=== PATIENT | female | born 2000 | race Two or more races ===

== ENCOUNTER 2022-11-08 13:29 | Outpatient (REF) | payer MEDICAID, SELFPAY ==
--- NOTE | ~2022-11-08 | XR_ITS ---
EXAMINATION: XR WRIST LT W SCAPHOID CLINICAL INFORMATION: Sprain of left wrist after injury. COMPARISON: None available. TECHNIQUE: Left wrist 4 views including scaphoid. FINDINGS: The alignment is normal. No visible fracture, dislocation or acute osseous abnormality is seen. Suggestion of mild soft tissue swelling dorsally. XR/XR wrist LT w scaphoid IMPRESSION: Mild soft tissue swelling. No visible fracture, dislocation or acute osseous abnormalities seen. Follow up radiograph can be obtained if the patient has persistent symptoms.
== END 2022-11-08 13:30 | disposition home or self-care (01) ==
LOC: HO.HHCX 13:29
PROVIDERS: Visit Provider Internal Medicine
DX: S63.502A Unspecified sprain of left wrist, initial encounter (principal)
CPT/HCPCS: 73110